=== PATIENT | male | born 1955 ===

== ENCOUNTER 2020-06-21 11:51 | Emergency (ER) | payer SELFPAY ==
--- NOTE | 2020-06-21 14:24 | ER ---
REASON FOR EMERGENCY ROOM VISIT: Flu-like symptoms. 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 He has been in the area for several days, and for the past 5 days or so, he states he has felt like he has had a fever with some myalgias and general malaise as well as some occasional chest tightness that was across his lower anterior chest area. He has not had any cough or diarrhea. He has had some occasional abdominal cramps, but no nausea or vomiting. His appetite has been decreased. He denies any dyspnea except with exertion, at which time it is mild. He was seen in [place], [place], where he was doing his missionary work approximately 3 weeks ago at which time he was treated with amoxicillin for a toothache. He also states he had a backache at that time. PAST MEDICAL HISTORY: Reviewed with him. He states that he had an irregular heart beat as an adolescent, but no problems since then. He has not had any hospitalization. He denies any history of stroke, coronary artery disease, chest pain, COPD, asthma, gastrointestinal disorders, urinary tract disorders, etc. He states that he has been healthy all of his life. MEDICATIONS: None. ALLERGIES: NONE TO MEDICATIONS. REVIEW OF SYSTEMS: Pertinent positives and negatives as listed in the HPI. PHYSICAL EXAMINATION: GENERAL: He is an alert man, who is pleasant and in no acute distress at this time. VITAL SIGNS: His heart rate is 82, blood pressure 135/88, respiratory rate is 16, O2 sats 98% on room air. HEENT: No conjunctivitis or scleral icterus. Oropharynx is not examined. NECK: No adenopathy. No JVD. CHEST: Clear to auscultation with good air exchange and no wheezes, rhonchi, or rales. CARDIAC: Regular rate without murmur. ABDOMEN: Scaphoid, soft, and nontender. No hepatosplenomegaly. No masses. EXTREMITIES: Good perfusion. No cyanosis. Good capillary refill. Normal pulses. No edema. NEUROLOGIC: He moves all 4 extremities to command. No facial asymmetry. No complaints of numbness. LABORATORY DATA: A rapid test for SARS-CoV-2 RNA was positive. Other labs pending at the time of this dictation. He did have a 12-lead EKG, which did not show any acute changes. IMPRESSION: 1. COVID-19. 2. No identified risk factors for significant comorbidities. 3. No respiratory distress at this time. PLAN: The patient has been basically homeless throughout his travels. He has relied upon the [employer] to finance his staying in hotels and so forth. He has been staying out at the [facility] for the past 5 or 6 days, certainly since the onset of his symptoms. We are in the process of contacting them to inform them with his permission of course so they can be notified and appropriate precautions taken. At this time, he is not a candidate for admission to the hospital obviously, and the most sensible thing would be for him to remain at the [facility] until he convalesces adequately. We are in the process of making these arrangements now including arranging financial support for this. I told him that he should stay away from nonsteroidal anti-inflammatory drugs, but certainly Tylenol would be adequate. He asked about C[place] Plus, which he thinks helps with his symptoms a great deal and I said that that is fine. He needs to take plenty of fluids and get plenty of rest, same as with influenza. He was reassured. Certainly, if he should experience any troubling symptoms, which I outlined to him, he should give us a call. He understands and agrees. All questions were answered. GRACE /[id number]
[2020-06-21] MEDS ORDERED: LORazepam 2 MG/ML SDV ONE (15:23)
== END 2020-06-21 14:15 | disposition home or self-care (01) ==
LOC: LB.ED 11:51
DX: U07.1 COVID-19 (principal)
CPT/HCPCS: 36415; 84484; 85025; 93005; 99285-25; A0425; A0429; U0002

== ENCOUNTER 2020-06-26 16:38 | Emergency (ER) | payer SELFPAY ==
[2020-06-26] MEDS: Sodium Chloride 0.9% 1,000 ML IV SCH (17:20)
[2020-06-26] MEDS: Ketorolac 60 MG/2 ML SDV IM ONE (17:44)
[2020-06-26] MEDS ORDERED: Ketorolac 60 MG/2 ML SDV ONE (17:57)
--- NOTE | 2020-06-26 18:50 | EDM.PDOC ---
ED HPI GENERAL MEDICAL PROBLEM - General Chief Complaint: General Stated Complaint: TOOTH PAIN Time Seen by Provider: 06/26/20 17:00 Source of Information: Reports: Patient, EMS, Old Records History Limitations: Reports: No Limitations - History of Present Illness INITIAL COMMENTS - FREE TEXT/NARRATIVE: Patient is a 64 y/o male who presents with right wisdom tooth pain x 6 weeks. He has already completed a course of amoxicillin, which was started over 3 weeks ago. 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 Patient got sick last week and tested positive for COVID. He has been staying at the [facility] and given daily meals by [facility]. Patient wants his tooth pulled. No chest pain, no SOB, no dizziness, no OSORIO, no N/V/D. EMS was called to bring patient to hospital for his tooth pain and he was found to have a fever of 100.8. - Related Data Allergies Allergy/AdvReac Type Severity Reaction Status Date / Time No Known Allergies Allergy Verified 06/21/20 15:04 Home Meds: Home Meds NK [No Known Home Meds] 06/21/20 [History] Social & Family History - Family History Family Medical History: Unobtainable - Caffeine Use Caffeine Use: Reports: Coffee ED ROS GENERAL - Review of Systems Review Of Systems: See Below Constitutional: Reports: No Symptoms HEENT: Reports: Dental Pain Respiratory: Reports: No Symptoms Cardiovascular: Reports: No Symptoms Endocrine: Reports: No Symptoms GI/Abdominal: Reports: No Symptoms : Reports: No Symptoms Musculoskeletal: Reports: No Symptoms Skin: Reports: No Symptoms Neurological: Reports: No Symptoms Psychiatric: Reports: No Symptoms ED EXAM, GENERAL - Physical Exam Exam: See Below Exam Limited By: No Limitations General Appearance: Alert, No Apparent Distress Throat/Mouth: Normal Inspection, Normal Lips, Normal Gums, Normal Oropharynx, Normal Voice, No Airway Compromise, Other (chipped right lower wisdom tooth; no fluctuance; no induration; no erythema; no drainage; no swelling) Head: Atraumatic, Normocephalic Neck: Normal Inspection, Supple Respiratory/Chest: No Respiratory Distress, Lungs Clear, Normal Breath Sounds, No Accessory Muscle Use, Chest Non-Tender Cardiovascular: Normal Peripheral Pulses, Regular Rate, Rhythm, No Edema, No Murmur Neurological: Alert, Oriented, Normal Cognition, Normal Gait, No Motor/Sensory Deficits Psychiatric: Normal Affect, Normal Mood Skin Exam: Warm, Dry #1 Interpretation EKG Date: 06/26/20 Time: 18:29 Rhythm: NSR Rate (Beats/Min): 98 [place]: Normal P-Wave: Present QRS: Normal ST-T: Normal QT: Normal Comparison: No Change Course - Vital Signs Text/Narrative:: toradol given. Augmentin prescription given. All labs normal. EKG unchanged from previous Last Recorded V/S: Last Vital Signs Temp 38.2 C H 06/26/20 17:33 Pulse 109 H 06/26/20 17:33 Resp 16 06/26/20 17:33 BP 137/82 06/26/20 17:33 Pulse Ox 95 06/26/20 17:33 Orthostatic Blood Pressure [ 111/77 Sitting] - Orders/Labs/Meds Orders: Active Orders 24 hr Category Date Time Status EKG Documentation Completion [RC] ASDIRECTED Care 06/26/20 16:58 Active Orthostatic Vital Signs [RC] ASDIRECTED Care 06/26/20 17:01 Active Sodium Chloride 0.9% [Normal Saline] 1,000 ml Med 06/26/20 17:00 Active IV ASDIRECTED Medication Orders Sodium Chloride (Normal Saline) 1,000 mls @ 1,000 mls/hr IV ASDIRECTED GAYLA Last Admin: 06/26/20 17:20 Dose: 1,000 mls/hr Documented by: JOSE L Labs: Laboratory Tests 06/26/20 06/26/20 Range/Units 16:57 17:34 WBC 3.7 L (4.0-11.0) K/uL RBC 4.93 (4.50-6.50) M/uL Hgb 15.2 (13.0-18.0) g/dL Hct 44.5 (40.0-54.0) % MCV 90 (76-96) fL MCH 30.8 (27.0-32.0) pg MCHC 34.2 (31.0-35.0) g/dL RDW 13.0 (11.0-16.0) % Plt Count 209 (150-400) K/uL MPV 10.3 H (6.0-10.0) fL Neut % (Auto) 63.8 (45.0-70.0) % Lymph % (Auto) 19.3 L (20.0-40.0) % Haakon % (Auto) 16.6 H (3.0-10.0) % Eos % (Auto) 0.3 L (1.0-5.0) % Baso % (Auto) 0.0 (0.0-0.5) % Neut # (Auto) 2.35 (2.00-7.50) K/uL Lymph # (Auto) 0.71 L (1.50-4.00) K/uL Haakon # (Auto) 0.61 (0.20-0.80) K/uL Eos # (Auto) 0.01 L (0.04-0.40) K/uL Baso # (Auto) 0.00 L (0.02-0.10) K/uL Sodium 140 (136-145) mmol/L Potassium 3.5 (3.5-5.1) mmol/L Chloride 101 (98-107) mmol/L Carbon Dioxide 27.1 (21.0-32.0) mmol/L Anion Gap 15.4 H (5.0-15.0) mmol/L BUN 14 (8-26) mg/dL Creatinine 1.11 (0.70-1.30) mg/dL Est Cr Clr Drug Dosing TNP Estimated GFR (MDRD) > 60 (>60) MLS/MIN BUN/Creatinine Ratio 12.6 (6-25) Glucose 123 H (74-100) mg/dL Calcium 8.8 (8.5-10.1) mg/dL Total Bilirubin 0.8 (0.0-1.0) mg/dL AST 42 H (15-37) U/L ALT 48 (12-78) U/L Alkaline Phosphatase 81 (46-116) U/L Troponin I 0.005 D (0.000-0.060) ng/mL Total Protein 7.4 (6.4-8.2) g/dL Albumin 3.6 (3.4-5.0) g/dL Globulin 3.8 (2.2-4.2) g/dL Albumin/Globulin Ratio 0.9 (0.8-2.0) Meds: Medications Generic Name Dose Route Start Last Admin Trade Name Freq PRN Reason Stop Dose Admin Sodium Chloride 1,000 mls @ 1,000 mls/hr 06/26/20 17:00 06/26/20 17:20 Normal Saline IV 1,000 mls/hr ASDIRECTED GAYLA Administration Discontinued Medications Generic Name Dose Route Start Last Admin Trade Name Lore PRN Reason Stop Dose Admin Ketorolac Tromethamine 60 mg 06/26/20 17:00 06/26/20 17:44 Toradol IM 06/26/20 17:01 60 mg ONETIME ONE Administration Ketorolac Tromethamine Confirm 06/26/20 17:57 Toradol Administered 06/26/20 17:58 Dose 60 mg .ROUTE .STK-MED ONE Departure - Departure Time of Disposition: 18:30 Disposition: Home, Self-Care 01 Condition: Good Clinical Impression: Pain, dental, Dehydration - Discharge Information *PRESCRIPTION DRUG MONITORING PROGRAM REVIEWED*: Not Applicable *COPY OF PRESCRIPTION DRUG MONITORING REPORT IN PATIENT KATY: Not Applicable Instructions: Dehydration, Adult, [id number] Referrals: PCP,None [Primary Care Provider] - Sepsis Event Note (ED) - Evaluation Sepsis Screening Result: No Definite Risk - Focused Exam Vital Signs: Vital Signs Temp Pulse Resp BP Pulse Ox 06/26/20 17:33 38.2 C H 109 H 16 137/82 95 - My Orders Last 24 Hours: My Active Orders 06/26/20 16:58 EKG Documentation Completion [RC] ASDIRECTED 06/26/20 17:00 Sodium Chloride 0.9% [Normal Saline] 1,000 ml IV ASDIRECTED 06/26/20 17:01 Orthostatic Vital Signs [RC] ASDIRECTED - Assessment/Plan Last 24 Hours: My Active Orders 06/26/20 16:58 EKG Documentation Completion [RC] ASDIRECTED 06/26/20 17:00 Sodium Chloride 0.9% [Normal Saline] 1,000 ml IV ASDIRECTED 06/26/20 17:01 Orthostatic Vital Signs [RC] ASDIRECTED
== END 2020-06-26 18:30 | disposition home or self-care (01) ==
LOC: LB.ED 16:38
DX: K08.89 Other specified disorders of teeth and supporting structures (principal); E86.0 Dehydration
CPT/HCPCS: 36415; 80053; 84484; 85025; 93005; 96372; 99284-25; J1885; J7030